=== PATIENT | female | born 1945 | race Caucasian/White ===

== ENCOUNTER 2024-06-07 13:56 | Outpatient (CLI) | payer OTHER | END 2024-06-07 19:52 | disposition home or self-care (01) | LOC: SCT 13:56 → EDUNIT# 14:00 → SCT 19:52 | PROVIDERS: ATTEND Student in an Organized Health Care Education/Training Program | DX: M17.12 Unilateral primary osteoarthritis, left knee (principal) ==

== ENCOUNTER 2024-06-17 06:46 | Inpatient (IN) | payer OTHER ==
[2024-06-11 13:25] LABS: BASOPHILS # (AUTO) 0.1 K/uL (0.0-0.2); BASOPHILS % (AUTO) 0.8 % (0.0-2.0); EOSINOPHILS # (AUTO) 0.2 K/uL (0.0-0.4); EOSINOPHILS % (AUTO) 2.9 % (0.0-4.0); HEMATOCRIT 38.8 % (36-48); LYMPHOCYTES # (AUTO) 2.7 K/uL (1.0-5.5); LYMPHOCYTES % (AUTO) 31.8 % (20.5-51.5); MEAN CORPUSCULAR HEMOGLOBIN 31 pg (27-31); MEAN CORPUSCULAR HGB CONC 34 % (32-36); MEAN CORPUSCULAR VOLUME 93 fL (79.0-98.0); MONOCYTES # (AUTO) 0.5 K/uL (0.0-1.0); MONOCYTES % (AUTO) 5.9 % (1.7-9.3); NEUTROPHILS % (AUTO) 58.6 % (40.0-70.0); PLATELET COUNT (AUTO) 332 K/uL (130-430); RED BLOOD CELL COUNT(AUTO) 4.16 MIL/uL (4.2-6.2); RED CELL DISTRIBUTION WIDTH 13.6 % (9.0-15.0); WHITE BLOOD COUNT (AUTO) 8.4 K/uL (4.8-10.8)
[2024-06-11 13:42] LABS: PROTHROMBIN TIME 10.2 SECS (9.5-12.5)
[2024-06-11 13:58] LABS: ALANINE AMINOTRANSFERASE 14 U/L (12-78); ALBUMIN 4.4 g/dL (3.4-4.8); ANION GAP 10 (5-15); ASPARTATE AMINOTRANSFERASE 18 U/L (10-37); CALCIUM 9.6 mg/dL (8.4-11.0); CARBON DIOXIDE 28 mmol/L (23-29); CHLORIDE 103 mmol/L (98-107); CREATININE 0.69 mg/dL (0.55-1.30); GLUCOSE 103 mg/dL (74-106); HEMOGLOBIN A1C 5.62 % (<5.7); POTASSIUM 3.4 mmol/L (3.5-5.1); SODIUM SERUM 141 mmol/L (136-145); TOTAL BILIRUBIN 0.9 mg/dL (0.0-1.0); TOTAL PROTEIN, SERUM 8.1 g/dL (6.4-8.3); UREA NITROGEN, BLOOD 8 mg/dL (8-21)
[~2024-06-17] VITALS: Ht 161.3 cm; Wt 66.9 kg
[2024-06-17] MEDS: CEFAZOLIN SOD 2 GM in D5W 50 ML IV ONE (07:00)
[2024-06-17] MEDS: CELECOXIB 100 MG CAPSULE ONE (07:03)
[2024-06-17] MEDS: ACETAMINOPHEN 500 MG TABLET ONE (07:03)
[2024-06-17] MEDS: SCOPOLAMINE HYDROBROMIDE 1 MG PATCH .72 H (TRANSDERM-SCOP) TD ONE ×2 (07:14→07:30)
[2024-06-17] MEDS: oxyCODONE HCL 10 MG TAB.ER.12H PO ONE ×2 (07:15→07:37)
[2024-06-17] MEDS: GABAPENTIN 300 MG CAPSULE ONE (07:15)
[2024-06-17] MEDS: CELECOXIB 100 MG CAPSULE PO ONE (07:30)
[2024-06-17] MEDS: ACETAMINOPHEN 500 MG TABLET PO ONE (07:30)
[2024-06-17] MEDS: GABAPENTIN 300 MG CAPSULE PO ONE (07:30)
[2024-06-17] MEDS ORDERED: fentaNYL CITRATE/PF 100 MCG/2 ML AMP ONE (07:34)
[2024-06-17] MEDS ORDERED: NS IRRIG SOLN 1000 ML IR ONE (07:34)
[2024-06-17] MEDS ORDERED: BUPIVACAINE /PF 0.25% 10 ML VIAL INJ ONE (07:34)
[2024-06-17] MEDS ORDERED: PROPOFOL 200MG/ 20ML VIAL (DIPRIVAN) IV ONE (07:34)
[2024-06-17] MEDS ORDERED: VANCOMYCIN HCL 1000 MG/VIAL IV ONE (07:34)
[2024-06-17] MEDS ORDERED: DEXAMETHASONE SOD PHOSPHATE 4 MG/ML VIAL ONE (07:34)
[2024-06-17] MEDS ORDERED: MIDAZOLAM HCL 2 MG/2 ML VIAL (VERSED) ONE (07:34)
[2024-06-17] MEDS ORDERED: TRANEXAMIC ACID 1,000 MG/10 ML VIAL ONE (07:34)
[2024-06-17] MEDS ORDERED: LR 1,000 ML IV.SOLN IV ONE ×2 (07:34)
[2024-06-17] MEDS ORDERED: ONDANSETRON HCL 4 MG/2 ML VIAL ONE (07:34)
[2024-06-17] MEDS ORDERED: LABETALOL 100 MG/ 20ML VIAL IVP PRN (08:45)
[2024-06-17] MEDS: LR 1,000 ML IV SCH (08:45)
[2024-06-17] MEDS ORDERED: MEPERIDINE HCL/PF 25 MG/ML DISP.SYRIN IVP PRN (08:45)
[2024-06-17] MEDS ORDERED: HYDROmorphone 1 MG/ML INJ. CARTRIDGE IVP PRN ×3 (08:45→14:45)
[2024-06-17] MEDS ORDERED: BISACODYL 10 MG/SUPPOSITORY RC PRN (09:45)
[2024-06-17] MEDS ORDERED: LACTULOSE 20 GM/30 ML UDC PO PRN (09:45)
[2024-06-17] MEDS ORDERED: DIPHENHYDRAMINE HCL 25 MG CAPSULE PO PRN (09:45)
[2024-06-17] MEDS: hydrALAZINE HCL 20 MG/ML VIAL IVP PRN (10:18)
[2024-06-17] MEDS: hydrALAZINE HCL 20 MG/ML VIAL ONE (10:20)
[2024-06-17] MEDS: TAMSULOSIN HCL 0.4 MG CAP ONE (10:35)
[2024-06-17] MEDS: TAMSULOSIN HCL 0.4 MG CAP PO ONE (10:35)
[2024-06-17] MEDS: ONDANSETRON HCL 4 MG/2 ML VIAL IVP ONE (11:00)
[2024-06-17] MEDS ORDERED: LORATADINE 10 MG TABLET PO PRN (11:00)
[2024-06-17] MEDS: ONDANSETRON HCL 4 MG/2 ML VIAL IVP PRN (11:03)
[2024-06-17] MEDS: ONDANSETRON HCL 4 MG/2 ML VIAL ONE (11:05)
[2024-06-17] MEDS: HYDROmorphone 1 MG/ML INJ. CARTRIDGE IVP PRN ×2 (12:26→20:08)
[2024-06-17] MEDS: HYDROmorphone 1 MG/ML INJ. CARTRIDGE ONE (12:28)
[2024-06-17] MEDS: METOCLOPRAMIDE HCL 10 MG/2 ML VIAL IVP PRN (13:34)
[2024-06-17] MEDS: METOCLOPRAMIDE HCL 10 MG/2 ML VIAL ONE (13:38)
[2024-06-17] MEDS: KETOROLAC TROMETHAMINE 10 MG TABLET (TORADOL) PO SCH (14:00)
[2024-06-17] MEDS ORDERED: METOCLOPRAMIDE HCL 10 MG/2 ML VIAL IVP PRN (14:45)
[2024-06-17] MEDS ORDERED: oxyCODONE HCL 5 MG TABLET PO PRN (14:45)
[2024-06-17] MEDS ORDERED: ACET325T53 PO ×2 (16:42)
[2024-06-17] MEDS ORDERED: LOSA-413 PO (16:42)
[2024-06-17 17:05] VITALS: BP_SYST 146; PULSE 87; RESP 16; TEMP 96.5; O2SAT 97
[2024-06-17 18:00] VITALS: BP_SYST 146; PULSE 85; RESP 18; TEMP 97.2; O2SAT 97
[2024-06-17] MEDS: ACETAMINOPHEN 500 MG TABLET PO SCH (19:00)
[2024-06-17] MEDS: ceFAZolin SODIUM 2 GM in D5W 50 ML IV SCH (19:10)
[2024-06-17 20:42] VITALS: BP_SYST 135; PULSE 78; RESP 18; TEMP 97; O2SAT 96
[2024-06-17] MEDS: SENNOSIDES/DOCUSATE SODIUM 1 TAB TABLET(SENOKOT-S) PO SCH (21:00)
[2024-06-18] VITALS: BP_SYST 133; PULSE 88; RESP 18; TEMP 97.8; O2SAT 97
[2024-06-18 04:20] VITALS: PULSE 90; TEMP 97.6
[2024-06-18] MEDS: traMADol HCL HCL 50 MG TABLET (ULTRAM) PO PRN (05:30)
[2024-06-18 07:13] LABS: BASOPHILS % (AUTO) 0.1 % (0.0-2.0); HEMATOCRIT 32.4 % (36-48); HEMOGLOBIN 10.9 g/dL (12.0-16.0); LYMPHOCYTES # (AUTO) 1.5 K/uL (1.0-5.5); LYMPHOCYTES % (AUTO) 8.6 % (20.5-51.5); MEAN CORPUSCULAR HEMOGLOBIN 31 pg (27-31); MEAN CORPUSCULAR HGB CONC 34 % (32-36); MEAN CORPUSCULAR VOLUME 92 fL (79.0-98.0); MONOCYTES # (AUTO) 1.6 K/uL (0.0-1.0); MONOCYTES % (AUTO) 9.3 % (1.7-9.3); NEUTROPHILS # (AUTO) 14.5 K/uL (1.8-7.7); PLATELET COUNT (AUTO) 268 K/uL (130-430); RED BLOOD CELL COUNT(AUTO) 3.52 MIL/uL (4.2-6.2); RED CELL DISTRIBUTION WIDTH 13.2 % (9.0-15.0); WHITE BLOOD COUNT (AUTO) 17.6 K/uL (4.8-10.8)
[2024-06-18] MEDS: oxyCODONE HCL 5 MG TABLET PO PRN (07:22)
[2024-06-18 07:24] LABS: ALANINE AMINOTRANSFERASE 16 U/L (12-78); ALBUMIN 3.7 g/dL (3.4-4.8); ANION GAP 10 (5-15); ASPARTATE AMINOTRANSFERASE 26 U/L (10-37); CALCIUM 9.1 mg/dL (8.4-11.0); CARBON DIOXIDE 27 mmol/L (23-29); CHLORIDE 102 mmol/L (98-107); CREATININE 0.71 mg/dL (0.55-1.30); GLUCOSE 134 mg/dL (74-106); POTASSIUM 3.5 mmol/L (3.5-5.1); SODIUM SERUM 139 mmol/L (136-145); TOTAL BILIRUBIN 0.8 mg/dL (0.0-1.0); TOTAL PROTEIN, SERUM 6.8 g/dL (6.4-8.3); UREA NITROGEN, BLOOD 9 mg/dL (8-21)
[2024-06-18 08:00] VITALS: BP_SYST 156; PULSE 74; RESP 16; TEMP 97.6; O2SAT 95
[2024-06-18] MEDS: TAMSULOSIN HCL 0.4 MG CAP PO SCH (09:52)
[2024-06-18] MEDS: ASPIRIN 81 MG TAB.CHEW PO SCH (09:52)
[2024-06-18 11:10] VITALS: BP_SYST 135; PULSE 74; RESP 16; TEMP 99.7; O2SAT 96
[2024-06-18] MEDS: CELECOXIB 200 MG CAPSULE PO SCH (11:54)
[2024-06-18 13:05] VITALS: BP_SYST 135; PULSE 74; RESP 16; TEMP 99.1; O2SAT 96
== END 2024-06-18 13:20 | disposition home health service (06) | DRG 470 ==
LOC: SDS 06:46 → SMU 06:47 → SDS 18:00 → SMU 20:47
PROVIDERS: ADMIT Student in an Organized Health Care Education/Training Program; ATTEND Student in an Organized Health Care Education/Training Program
PROC: 0SRD0JA Replacement of Left Knee Joint with Synthetic Substitute, Uncemented, Open Approach (ICD-10-PCS; principal; 2024-06-17 07:39)
DX: M17.12 Unilateral primary osteoarthritis, left knee (principal); I10 Essential (primary) hypertension; Z79.899 Other long term (current) drug therapy; Z88.8 Allergy status to other drugs, medicaments and biological substances
CPT/HCPCS: 36415; 71046; 73560; 80053; 83037; 85025; 85610; 85730; 87081; 88305; 88311; 96379; 97110-GP; 97116-GP; 97530-GP; C1776; J0360; J0690; J0696; J1100; J1171; J2250; J2405; J2704; J2765; J3010; J3370; J3490; J7060; J7120